=== PATIENT | female | born 1985 | race Caucasian/White ===

== ENCOUNTER → 2018-06-02 | Outpatient (CLI) | payer MEDICAID | LOC: FIMAGING 10:17 | PROVIDERS: ATTEND Advanced Practice Midwife | DX: O09.522 Supervision of elderly multigravida, second trimester (principal); O99.212 Obesity complicating pregnancy, second trimester; Z68.35 Body mass index [BMI] 35.0-35.9, adult; Z3A.21 21 weeks gestation of pregnancy ==

== ENCOUNTER 2018-10-14 11:41 | Observation (INO) | payer MEDICAID ==
[2018-10-14 12:35] LABS: PLATELET COUNT 190 10^3/uL (150-400)
--- NOTE | 2018-10-14 13:39 | SOAPPROG ---
SOAP Progress Note Assessment/Plan: Assessment: Plan: 10/14/18 13:38 A: Normal blood pressures; neg PIH labs Most likely white coat syndrome P: Discharge home with PIH precautions Subjective: Pt sent to L & D for blood pressure monitoring and PIH labs. No symptoms of preeclampsia Objective: Laboratory Results 10/14/18 12:15 10/14/18 12:15 Blood pressures have been normal since arrival PIH labs normal Baseline FHT 140's, mod margi; + accels; no decels - Pending Discharge Pending Discharge Within 24 Hours: Yes Pending Discharge Date: 10/15/18 Pending Discharge Time: 11:00 ICD10 Worksheet Patient Problems: Problems Problem Status Onset Elevated blood pressure affecting in third trimester, antepartum Acute - ICD10 Problem Qualifiers (1) Elevated blood pressure affecting in third trimester, antepartum
== END 2018-10-14 15:50 | disposition home or self-care (01) ==
LOC: FLD 11:41
PROVIDERS: ADMIT Advanced Practice Midwife; ATTEND Advanced Practice Midwife
DX: R03.0 Elevated blood-pressure reading, without diagnosis of hypertension (principal); Z03.79 Encounter for other suspected maternal and fetal conditions ruled out
CPT/HCPCS: 59025; G0378

== ENCOUNTER 2018-10-17 19:00 | Inpatient (IN) | payer MEDICAID ==
[2018-10-17] MEDS ORDERED: TERBUTALINE SULFATE 1 MG/ML VIAL ONE (19:27)
[2018-10-17] MEDS ORDERED: AMMONIA AROMATIC 1 EACH AMP IH ONE (19:27)
[2018-10-17] MEDS ORDERED: OXYTOCIN 10 UNIT/ML VIAL ONE (19:27)
[2018-10-17] MEDS ORDERED: MISOPROSTOL 200 MCG TAB ONE (19:27)
[2018-10-17] MEDS ORDERED: OLIVE OIL 118 ML BTL ONE (19:27)
[2018-10-17] MEDS ORDERED: LIDOCAINE 1% 300 MG/30 ML SDV ONE (19:27)
[2018-10-17] MEDS ORDERED: IBUPROFEN 600 MG TAB PO PRN (19:31)
[2018-10-17] MEDS ORDERED: LIDOCAINE 1% 300 MG/30 ML SDV SC PRN (19:31)
[2018-10-17] MEDS ORDERED: OLIVE OIL 118 ML BTL MISC PRN (19:31)
[2018-10-17] MEDS ORDERED: MISOPROSTOL 200 MCG TAB PR PRN (19:31)
[2018-10-17] MEDS ORDERED: TERBUTALINE SULFATE 1 MG/ML VIAL IV PRN (19:31)
[2018-10-17] MEDS ORDERED: LR 1,000 ML IV PRN (19:31)
[2018-10-17] MEDS ORDERED: OXYTOCIN/RINGERS LACTATE 1,000 ML IV PRN (19:31)
[2018-10-17] MEDS ORDERED: EPSOM SALT 454 GM TP PRN (19:31)
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
--- NOTE | 2018-10-17 20:14 | OBDEL ---
Info Type: Vaginal Presentation at Delivery: Vertex L&D Analgesia/Anesthesia Type: None GBS+: Yes (Declined treatment) Indications for Delivery: Spontaneous Labor Vaginal Delivery - Delivery Provider Delivery Physician/CNM: Micheline Sagastume - Labor and Delivery Onset of Contractions Date: 10/17/18 Onset of Contractions Time: 17:00 Onset of Contractions Type: Spontaneous Rupture of Membranes Date: 10/17/18 Rupture of Membranes Time: 19:49 Rupture of Membranes Type: Spontaneous Amniotic Fluid Color: Clear Dilation Complete Date: 10/17/18 Dilation Complete Time: 19:45 Placenta Delivery Date: 10/17/18 Placenta Delivery Time: 20:00 Total Hours of Labor: 3 Vaginal Sponge Count Correct: Yes Vaginal Needle Count Correct: Yes Vaginal Sweep Performed: Yes EBL: 100 Delivery Events: Other (Specify) (Precipitous ) [place]dle Data MEGA: 10/09/18 Gestational Age: 41 week(s) and 2 day(s) Fish Delivery Date: 10/17/18 Delivery Time: 19:49 Sex of : Female Score (1 Min): 8 Score (5 Min): 9 ICD10 Worksheet Patient Problems: Problems Problem Status Onset Precipitate labour, delivered Acute Elevated blood pressure affecting in third trimester, antepartum Acute - ICD10 Problem Qualifiers (1) Precipitate labour, delivered
[2018-10-18] MEDS: ACETAMINOPHEN 325 MG TAB PO SCH ×5 (00:32→22:30)
[2018-10-18] MEDS: IBUPROFEN 600 MG TAB PO SCH ×4 (03:23→22:48)
--- NOTE | 2018-10-18 10:47 | OBPP ---
Progress Note Assessment/Plan: Assessment: Plan: 10/18/18 10:47 PPD #1 Establishing Hx of inadequate PCOS, inadequate glandular tissue, and inadequate milk supply P: Discussed studies coming out regarding Metformin with women with PCOS and some data coming out that it may increase milk supply by decreasing insulin resistance. it does not increase glandular tissue formation however and she will still likely need to supplement. She would like to try this. Will start her on Metformin SR 500 mg x 1 week, increasing to 1000 mg week 2, 1500 mg week 3 and 2000 mg week 4 as tolerated. Reviewed gastrointestinal effects and need to increase slowly. Bhumika the cardiology clinical consultant is also meeting with her and will be talking to the vp legal affairs about donor milk while here. Would like to discharge home tomorrow. Subjective/ Course: 10/18/18 10:44 Doing well. Very happy with . Baby is latching well and nursing frequently. Pain minimal. Pt has history of PCOS and inadequate glandular tissue. She has donor milk at home and is aware she will need to supplement. Objective: Temp Pulse Resp BP Pulse Ox 36.5 C 74 18 118/77 96 10/18/18 09:00 10/18/18 09:00 10/18/18 09:00 10/18/18 09:00 10/18/18 09:00 Breasts soft, nipples intact bilaterally Uterine Position/Fundal Height: Umbilicus -1 Uterine Tone: Firm
[2018-10-18] MEDS: metFORMIN SR 500 MG TAB PO SCH (18:20)
[2018-10-19] MEDS: ACETAMINOPHEN 325 MG TAB PO SCH ×3 (04:30→16:44)
[2018-10-19] MEDS: IBUPROFEN 600 MG TAB PO SCH ×4 (05:08→17:26)
[2018-10-19 08:24] VITALS: BP 130/80
--- NOTE | 2018-10-19 11:42 | OBPP ---
Progress Note Assessment/Plan: Assessment: PPD #2 Plan: Discharge home today. Continue ibuprofen and metformin SR as discussed. Follow up in clinic week 2//6. 10/18/18 10:47 PPD #1 Establishing Hx of inadequate PCOS, inadequate glandular tissue, and inadequate milk supply P: Discussed studies coming out regarding Metformin with women with PCOS and some data coming out that it may increase milk supply by decreasing insulin resistance. it does not increase glandular tissue formation however and she will still likely need to supplement. She would like to try this. Will start her on Metformin SR 500 mg x 1 week, increasing to 1000 mg week 2, 1500 mg week 3 and 2000 mg week 4 as tolerated. Reviewed gastrointestinal effects and need to increase slowly. Bhumika the testing consultant is also meeting with her and will be talking to the human resources team member about donor milk while here. Would like to discharge home tomorrow. 10/19/18 12:38 Subjective/ Course: 10/18/18 10:44 Doing well. Very happy with . Baby is latching well and nursing frequently. Pain minimal. Pt has history of PCOS and inadequate glandular tissue. She has donor milk at home and is aware she will need to supplement. 10/19/18 12:36 Doing well. Baby continues latching well and is receiving donor milk. Having some after pains but controlled with ibuprofen. Baby may stay another day due to GBS + status and no antibiotics but is doing well and no signs of infection Objective: Temp Pulse Resp BP Pulse Ox 36.2 C 72 16 130/80 H 96 10/19/18 08:00 10/19/18 08:00 10/18/18 20:00 10/19/18 08:00 10/18/18 20:00 breasts soft, nipples intact Uterine Position/Fundal Height: Umbilicus -1 Uterine Tone: Firm
--- NOTE | 2018-10-19 12:42 | OBGCSDC ---
General Delivery Information - General Info : 4 Para: 4 Abortions: 1 Type: Vaginal L&D Analgesia/Anesthesia Type: None Admission Date: 10/17/18 - Hospital Course : 10/18/18 10:44 Doing well. Very happy with . Baby is latching well and nursing frequently. Pain minimal. Pt has history of PCOS and inadequate glandular tissue. She has donor milk at home and is aware she will need to supplement. 10/19/18 12:36 Doing well. Baby continues latching well and is receiving donor milk. Having some after pains but controlled with ibuprofen. Baby may stay another day due to GBS + status and no antibiotics but is doing well and no signs of infection Vaginal - Delivery Provider Delivery Physician/CNM: Micheline Sagastume - Diagnosis Labor: Spontaneous Rupture of Membranes Type: Spontaneous Amniotic Fluid Color: Clear Delivery Events: Other (Specify) (Precipitous ) - Delivery EBL: 100 Data MEGA: 10/09/18 Gestational Age: 41 week(s) and 3 day(s) Fish Delivery Date: 10/17/18 Delivery Time: 19:49 Sex of : Female Weight (gm): 3632 g Score (1 Min): 8 Score (5 Min): 9 Discharge Information - Discharge Information Condition: Good Instruction/Follow Up: Two Weeks, Four Weeks
[2018-10-19] MEDS: metFORMIN SR 500 MG TAB PO SCH (17:26)
== END 2018-10-19 19:24 | disposition home or self-care (01) | DRG 560 ==
LOC: FLD 19:00 → FOB 22:12
PROVIDERS: ADMIT Advanced Practice Midwife; ATTEND Advanced Practice Midwife
PROC: 10E0XZZ Delivery of Products of Conception, External Approach (ICD-10-PCS; principal; 2018-10-17)
DX: O48.0 Post-term pregnancy (principal); D64.9 Anemia, unspecified; Z37.0 Single live birth; Z3A.41 41 weeks gestation of pregnancy; O99.824 Streptococcus B carrier state complicating childbirth; O99.02 Anemia complicating childbirth
CPT/HCPCS: J2590; J3105